=== PATIENT | female | born 1985 | race Caucasian/White ===

== ENCOUNTER 2021-03-20 16:10 | Observation (INO) | payer OTHER ==
[2021-03-20] MEDS ORDERED: ACETAMINOPHEN 325 MG TABLET (FP) PO ONE (17:10)
[2021-03-20 17:33] LABS: URINE APPEARANCE CLEAR; URINE BILIRUBIN NEGATIVE (NEGATIVE); URINE COLOR YELLOW; URINE GLUCOSE (UA) NEGATIVE (NEGATIVE); URINE KETONE NEGATIVE (NEGATIVE); URINE LEUK ESTERASE NEGATIVE (NEGATIVE); URINE NITRITE NEGATIVE (NEGATIVE); URINE PROTEIN NEGATIVE (NEGATIVE); URINE UROBILINOGEN 0.2 mg/dL (0.2-1.0)
[2021-03-20 17:36] LABS: HCG,QUALITATIVE URINE Negative
[2021-03-20] MEDS ORDERED: ACETAMINOPHEN 325 MG TABLET (FP) ONE (18:23)
[2021-03-20 18:27] LABS: BASO % 0.5 % (0-2.0); EOS % 1.5 % (0-4.5); HEMATOCRIT 37.4 % (32.4-45.2); HEMOGLOBIN 12.6 GM/dL (10.7-15.3); LYMPH % 24.5 % (8-40); MCH 31.2 pg (25.7-33.7); MCHC 33.8 g/dl (32.0-36.0); MEAN CELL VOLUME 92.5 fl (80-96); MEAN PLT VOLUME 8.3 fl (7.5-11.1); MONO % 3.5 % (3.8-10.2); PLATELET COUNT 300 10^3/uL (134-434); RBC 4.04 M/mm3 (3.60-5.2); RDW 13.3 % (11.6-15.6); WHITE BLOOD COUNT 8.8 K/mm3 (4.0-10.0)
[2021-03-20 18:42] LABS: CHLORIDE 108 mmol/L (98-107); SODIUM 129 mmol/L (136-145)
[2021-03-20 18:44] LABS: ALBUMIN 3.4 g/dl (3.4-5.0); BLOOD UREA NITROGEN 11.1 mg/dL (7-18); CALCIUM 8.2 mg/dL (8.5-10.1); CO2 23 mmol/L (21-32); GLUCOSE,RANDOM 100 mg/dL (74-106)
[2021-03-20 18:47] LABS: CREATININE 0.7 mg/dL (0.55-1.3)
[2021-03-20 18:49] LABS: BILIRUBIN,TOTAL 0.6 mg/dL (0.2-1); TOT PROT 8.4 g/dl (6.4-8.2)
[2021-03-20 18:50] LABS: ALK PHOS 125 U/L (45-117)
[2021-03-20 18:54] LABS: ANION GAP -2 MMOL/L (8-16); SGOT/AST 106 U/L (15-37); SGPT/ALT 34 U/L (13-61)
[2021-03-20 18:57] LABS: INR 1.01 (0.83-1.09); PROTHROMBIN TIME (PATIENT) 11.6 SEC (9.7-13.0)
[2021-03-20 19:00] LABS: ACTIVATED PTT 32.2 SECONDS (25.2-36.5)
[2021-03-20] MEDS ORDERED: SODIUM CHLORIDE 0.9% 500 ML INFUS.BAG IV ONE (19:27)
[2021-03-21 00:43] LABS: BLOOD UREA NITROGEN 9.2 mg/dL (7-18); CALCIUM 8.2 mg/dL (8.5-10.1)
[2021-03-21 00:47] LABS: CREATININE 0.6 mg/dL (0.55-1.3)
[2021-03-21] MEDS ORDERED: FLU VACC QS2021-22(6MOS UP)/PF 60 MCG/0.5 ML SYRINGE IM ONE ×2 (02:03→09:15)
[2021-03-21] MEDS ORDERED: ENOXAPARIN NA (PORCINE) 40 MG/0.4 ML DISP.SYRIN SQ ONE (02:17)
[2021-03-21] MEDS ORDERED: ACETAMINOPHEN 1000 MG/100 ML BAG IVPB ONE (04:29)
[2021-03-21 05:00] VITALS: BP 102/60; PULSE 65; TEMP 98.1
[2021-03-21] MEDS ORDERED: TRIMETHOBENZAMIDE HCL 300 MG CAPSULE PO ONE (05:13)
[2021-03-21 09:46] LABS: BASO % 0.4 % (0-2.0); EOS % 0.8 % (0-4.5); HEMATOCRIT 35.9 % (32.4-45.2); HEMOGLOBIN 12.3 GM/dL (10.7-15.3); LYMPH % 20.5 % (8-40); MCH 31.7 pg (25.7-33.7); MCHC 34.3 g/dl (32.0-36.0); MEAN CELL VOLUME 92.4 fl (80-96); MEAN PLT VOLUME 8.4 fl (7.5-11.1); MONO % 2.8 % (3.8-10.2); NEUT % 75.5 % (42.8-82.8); PLATELET COUNT 300 10^3/uL (134-434); RBC 3.88 M/mm3 (3.60-5.2); RDW 13.1 % (11.6-15.6); WHITE BLOOD COUNT 9.1 K/mm3 (4.0-10.0)
[2021-03-21 10:16] LABS: BLOOD UREA NITROGEN 12.8 mg/dL (7-18)
[2021-03-21 10:17] LABS: ALBUMIN 3.4 g/dl (3.4-5.0)
[2021-03-21 10:18] LABS: BILIRUBIN,TOTAL 0.3 mg/dL (0.2-1); CALCIUM 8.5 mg/dL (8.5-10.1); TOT PROT 7.1 g/dl (6.4-8.2)
[2021-03-21 10:19] LABS: CREATININE 0.7 mg/dL (0.55-1.3); MAGNESIUM 2.4 mg/dL (1.8-2.4)
[2021-03-21] MEDS ORDERED: ACETAMINOPHEN 1000 MG/100 ML BAG IVPB PRN (11:00)
[2021-03-21] MEDS ORDERED: morphine CARPU-JECT 2 MG/1 ML DISP.SYRIN IM ONE (11:18)
[2021-03-21] MEDS ORDERED: IBUPROFEN 800 MG/8 ML IJ IVPB PRN (11:54)
== END 2021-03-21 20:34 | disposition home or self-care (01) ==
LOC: JER 16:10 → INTOOBSV 19:53 → JERBED 19:53 → J6S 03-21 01:15
PROVIDERS: ADMIT Internal Medicine; ATTEND Internal Medicine
PROC: 3E033NZ Introduction of Analgesics, Hypnotics, Sedatives into Peripheral Vein, Percutaneous Approach (ICD-10-PCS; principal; 2021-03-20)
PROC: 3E023GC Introduction of Other Therapeutic Substance into Muscle, Percutaneous Approach (ICD-10-PCS; 2021-03-20)
PROC: 3E0337Z Introduction of Electrolytic and Water Balance Substance into Peripheral Vein, Percutaneous Approach (ICD-10-PCS; 2021-03-20)
DX: D27.1 Benign neoplasm of left ovary (principal); R10.32 Left lower quadrant pain; E87.1 Hypo-osmolality and hyponatremia; Z87.898 Personal history of other specified conditions; I45.81 Long QT syndrome; E66.9 Obesity, unspecified; Z68.30 Body mass index [BMI] 30.0-30.9, adult; Z29.9 Encounter for prophylactic measures, unspecified
CPT/HCPCS: 36415; 74177-TC; 76830-TC; 80048; 80053; 81003; 83735; 84100; 84132; 84439; 84443; 84702; 84703; 85025; 85610; 85730; 87086; 90686; 93005; 93010; 96372; 96374; 96375; 99285-25; C9803; G0378; J0131; Q9967; U0003; U0005